=== PATIENT | male | born 1945 | race Caucasian/White ===

== ENCOUNTER 2017-08-13 05:27 | Day surgery (SDC) | payer OTHER, MEDICARE ==
[2017-08-10 12:03] LABS: APPEARANCE,URINE CLEAR; BILIRUBIN,URINE NEGATIVE (NEGATIVE); GLUCOSE, URINE NEGATIVE (NEGATIVE); KETONES,URINE NEGATIVE (NEGATIVE); LEUKOCYTE ESTERASE,URINE NEGATIVE (NEGATIVE); NITRITE,URINE NEGATIVE (NEGATIVE); PROTEIN,URINE NEGATIVE (NEGATIVE); URINE SPECIFIC GRAVITY 1.009; UROBILINOGEN,URINE NEGATIVE mg/dL (<2.0)
[2017-08-10 12:04] LABS: ABSOLUTE BASOPHILS # (AUTO) 0.1 10^3/uL (0.0-0.2); ABSOLUTE EOSINOPHILS # (AUTO) 0.1 10^3/uL (0.0-0.6); ABSOLUTE MONOCYTES (AUTO) 0.8 10^3/uL (0.1-1.4); ABSOLUTE NEUT (AUTO) 7.8 10^3/uL (1.7-8.2); BASOPHILS % (AUTO) 0.6 % (0-2); EOSINOPHILS % (AUTO) 1.5 % (0-6); HEMOGLOBIN 14.9 g/dL (13.5-17.0); HGB HCT DIFFERENCE 2.7; LYMPHOCYTES % (AUTO) 10.4 % (13-45); MEAN CORPUSCULAR HEMOGLOBIN 31.3 pg (27.0-33.4); MEAN CORPUSCULAR HGB CONC 35.5 g/dL (32.0-36.0); MEAN CORPUSCULAR VOLUME 88 fl (80-97); MONOCYTES % (AUTO) 7.7 % (3-13); RED BLOOD COUNT 4.77 10^6/uL (4.35-5.55); RED CELL DISTRIBUTION WIDTH 13.4 % (11.5-14.0); SEGMENTED NEUTROPHILS % (AUTO) 79.8 % (42-78); WHITE BLOOD COUNT 9.8 10^3/uL (4.0-10.5)
[2017-08-10 12:33] LABS: ANION GAP 14 (5-19); BLOOD UREA NITROGEN 24 mg/dL (7-20); CALCIUM 9.2 mg/dL (8.4-10.2); CARBON DIOXIDE 25 mmol/L (22-30); CHLORIDE 103 mmol/L (98-107); CREATININE RESULT 1.03 mg/dL (0.52-1.25); GLUCOSE 89 mg/dL (75-110); POTASSIUM 4.9 mmol/L (3.6-5.0); SODIUM 141.5 mmol/L (137-145)
--- NOTE | 2017-08-10 14:10 | EKG REPORT ---
SEVERITY:- NORMAL ECG - SINUS RHYTHM : Confirmed by: Jaime Carrillo MD 10-Aug-2017 14:09:24
--- NOTE | 2017-08-10 14:40 | RADIOLOGY REPORT (SQ) ---
EXAM DESCRIPTION: CHEST PA/LATERAL COMPLETED DATE/TIME: 08/10/2017 12:17 pm REASON FOR STUDY: PRE-OP M75.122 COMPLETE ROTATR-CUFF TEAR/RUPTR OF LEFT SHOULDER, NO COMPARISON: None. NUMBER OF VIEWS: Two view. TECHNIQUE: Frontal and lateral radiographic views of the chest acquired. LIMITATIONS: None. FINDINGS: LUNGS AND PLEURA: No opacities, masses or pneumothorax. No pleural effusion. MEDIASTINUM AND HILAR STRUCTURES: No masses. No contour abnormalities. HEART AND VASCULAR STRUCTURES: Heart enlarged without failure. Aorta normal for age. BONES: No acute findings. HARDWARE: None in the chest. OTHER: No other significant finding. IMPRESSION: No acute abnormality in the chest. TECHNICAL DOCUMENTATION: JOB ID: [id number] [employer]- All Rights Reserved
[~2017-08-13 05:27] MED LIST: CEFAZOLIN 2 GM/D5W RTU 2 GM/50 ML RTUPB IV PRN; LACTATED RINGERS 1000 ML IV PRN; LIDOCAINE 0.5% INJ-PF (5 MG/ML) 50 ML SDV SUBCUT PRN
[2017-08-13 06:11] LABS: PROTHROMBIN TIME 13.5 SEC (11.4-15.4)
[2017-08-13 06:12] LABS: PARTIAL THROMBOPLASTIN TIME 30.9 SEC (23.5-35.8)
[2017-08-13] MEDS ORDERED: EPINEPHRINE INJ/PF 1 MG/1 ML AMPULE ONE (06:32)
[2017-08-13] MEDS ORDERED: BUPIVACAINE HCL 0.5 % INJ/PF 30 ML SDV ONE (06:32)
[2017-08-13] MEDS ORDERED: FENTANYL CITRATE INJ/PF 250 MCG/5 ML AMPULE ONE (06:50)
[2017-08-13] MEDS ORDERED: HYDROMORPHONE HCL INJ/PF 2 MG/ML AMPULE ONE (06:50)
[2017-08-13] MEDS ORDERED: LIDOCAINE 2% INJ-PF (20 MG/ML) 10 ML AMPUL ONE (06:50)
[2017-08-13] MEDS ORDERED: PROPOFOL INJ 200 MG/20 ML VIAL IV ONE (06:51)
[2017-08-13] MEDS ORDERED: DEXAMETHASONE SOD PHOSPHATE INJ 4 MG/1 ML VIAL ONE (06:51)
[2017-08-13] MEDS ORDERED: MIDAZOLAM 2 MG/2 ML INJ ONE (06:51)
[2017-08-13] MEDS ORDERED: ONDANSETRON HCL INJ/PF 4 MG/2 ML SDV ONE (06:51)
[2017-08-13] MEDS ORDERED: ACETAMINOPHEN 100 ML IV ONE (06:51)
[2017-08-13] MEDS ORDERED: EPHEDRINE SULFATE INJ 50 MG/1 ML AMPULE ONE (08:06)
[2017-08-13] MEDS ORDERED: MEPERIDINE HCL/PF INJ 25 MG/1 ML DISP.SYRIN IV PRN (08:37)
[2017-08-13] MEDS ORDERED: ONDANSETRON HCL INJ/PF 4 MG/2 ML SDV IV PRN (08:37)
[2017-08-13] MEDS ORDERED: DIPHENHYDRAMINE HCL 50 MG/ML VIAL IV PRN (08:37)
[2017-08-13] MEDS ORDERED: PROMETHAZINE HCL INJ 25 MG/1 ML VIAL IV PRN ×2 (08:37)
[2017-08-13] MEDS ORDERED: OXYCODONE-ACETAMINOPHEN 5-325 MG TABLET PO PRN ×4 (08:37→11:15)
[2017-08-13] MEDS ORDERED: FENTANYL CITRATE INJ/PF 100 MCG/2 ML AMPUL IV PRN ×3 (08:37)
[2017-08-13] MEDS ORDERED: MORPHINE SULFATE 10 MG/ML INJ IV PRN (08:37)
[2017-08-13] MEDS ORDERED: IBUPROFEN INJ 800 MG/8 ML VIAL IV ONE (11:11)
[2017-08-13] MEDS: FENTANYL CITRATE INJ/PF 100 MCG/2 ML AMPUL ONE ×2 (11:12→11:21)
--- NOTE | 2017-08-13 11:12 | Operative Report ---
Operative Report DATE OF SURGERY: 08/13/17 PREOPERATIVE DIAGNOSIS: Left shoulder rotator cuff tear and degenerative SLAP tear POSTOPERATIVE DIAGNOSIS: Same OPERATION: Left shoulder arthroscopic rotator cuff repair and subpectoralis biceps tenodesis SURGEON: LAVELLE ANN ANESTHESIA: GA TISSUE REMOVED OR ALTERED: Portion of the long head of the biceps COMPLICATIONS: None ESTIMATED BLOOD LOSS: Less than 20 mL INTRAOPERATIVE FINDINGS: As above PROCEDURE: IMPLANTS: 5.5mm by composite anchors with suture tape and one 4.75mm by composite swivel lock DESCRIPTION OF PROCEDURE: Patient was brought to the operating room placed in supine position. After successfully induced and intubated the patient patient was placed in the beachchair position the head and endotracheal tube was secured appropriately. The left shoulder was prepped and draped in a normal surgical fashion. A timeout was done identifying the left shoulder as the correct site. After inflating the glenohumeral joint with sterile saline solution an 11 blade was used to establish the posterior portal. The arthroscope was introduced and return of fluid was seen showing that we successfully penetrated the glenohumeral joint. With the use of spinal needle we're able to evaristo the anterior portal and using an 11 blade able to establish anterior portal. A cannula was introduced through the anterior portal. At this point diagnostic scope was done. 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 Patient had degenerative tearing of the labrum involving the long head of the biceps with subluxation medially. I proceeded to use arthroscopic scissors to do a tenotomy of the biceps. I use a shaver to debride the labrum cartilage of the humeral head. I used electrical radiofrequency ablator to them and up the tissue on the glenoid rim to free up the rotator cuff superiorly which showed a full-thickness tear with retraction. A lateral portal was established 11 blade. 4.0mm shaver was introduced and was used to prepare the tear and the frontal bone for preparation of anchor placement. Once I was satisfied with the preparation I then redirected my scope into the subacromial space. I did a formal bursectomy. Patient had very inflamed bursa tissue that required significant resection. I was able to expose the margin convergence full-thickness tear of the supraspinous and infraspinatus. I was able to see that I can mobilize infraspinatus and bring it towards the greater tuberosity and the supraspinatus as well. I proceeded to actually do a margin convergence using the scorpion fast pass needle to pass a FiberWire and bring the apex together. A percutaneous incision was then just adjacent to the acromion on the lateral aspect. Through this percutaneous hole the awl was used to prepare the hole for an anchor. [place] was percutaneously sent flushed with the bone just adjacent to the articular margin.Same steps were taken for placement of our second anchor more posteriorly. Sutures were passed through the anterior portal for proper suture management. With the use of the scorpion and I proceeded to pass the sutures through the rotator cuff tendon with proper suture management was able to pass the strands either through percutaneous hole or the anterior portal. Once I was satisfied with placement of all my sutures I then proceeded to do my arthroscopic knots. At this point the strands were used to do our lateral row. Bicomposite show out was used and the lateral aspect of the humerus was then cleaned off with a shaver and electrocautery. Once identified once I was replacement I proceeded to use my awl to do my hole. This this point the sutures were adequately tensioned and subluxed for inserted and secured securing and increasing the footprint of the rotator cuff repair. Remaining strands were cut with the arthroscopic cutter.Final pictures were taking showing my repair. At this point fluid from the shoulder was removed camera and instruments were all removed. Once my rotator cuff was repaired I then did my subpectoralis biceps tenodesis doing a 1 inch incision on the anterior aspect of the arm. Bovie was used to maintain hemostasis. Metzenbaum scissors was used to dissect the fascial tissue over the biceps. This was freed proximally and distally and I was able to follow the bicipital groove and palpate the biceps. I used a 90 clamp to actually capture the biceps and poor to my incision. I was able then to use a fiber loop and secured 2 cm of the muscular tendinous junction and tendon. I used the button and fed the FiberWire through it securing into the titanium button. I used a 4.0 spade tip guidepin to drill hole at the base of the bicipital groove and removed it. I was able to insert and and flipped the button and securing the biceps onto the anterior portion of the biceps. I did half hitch knots to secure further and then cut it with a FiberWire scissors. I proceeded to close my portal sites with 3-0 nylon. I used 0 Vicryl 2-0 Vicryl for the subpectoral incision and 3-0 nylon for the skin. Applied Xeroform , 4 x 4 dressing followed by ABDs pads and Medipore tape was applied. Patient was placed in a sling and returned to supine position where he was successfully extubated and taken to PACU in stable condition.
--- NOTE | 2017-08-13 11:15 | PDOC DISCHARGE SUMMARY ---
Discharge Summary (SDC) - Discharge Final Diagnosis: Status post left shoulder arthroscopic rotator cuff repair and subpectoralis biceps tenodesis Date of Surgery: 08/13/17 Discharge Date: 08/13/17 Condition: Good Treatment or Instructions: Patient is instructed to follow up in 10-14 days. Patient instructed to remove dressing in 4 days then can shower and apply Band- Aids as needed. Patient to wear sling for comfort but okay to remove for shower and pendulum exercises. Pendulum exercises are instructed to be done 3 times a day ideally with breakfast, lunch, dinners and showers. Patient instructed to call if there is any signs of redness or drainage fevers or chills. Prescriptions: Oxycodone HCl/Acetaminophen [Percocet 5-325 mg Tablet] 1 - 2 tab PO ASDIR PRN # 60 tablet PRN Reason: Referrals: LEATHA RIVERA MD [Primary Care Provider] - Discharge Diet: As Tolerated Respiratory Treatments at Home: Deep Breathing/Coughing Discharge Activity: No Driving, No Lifting/Push/Pulling, Walk Frequently Home Care Assistance: None Needed Report the Following to Your Physician Immediately: Shortness of Breath, Vomiting, Increase in Pain, Fever over 101 Degrees, Unusual Bleeding, Redness, Swelling, Warmth, Increased Soreness, Drainage-Yellow, Drainage-Gonzalez, Drainage- Green, Drainage-Foul Smelling
[2017-08-13] MEDS ORDERED: LORAZEPAM INJ 2 MG/1 ML VIAL ONE (11:48)
[2017-08-13] MEDS ORDERED: MORPHINE SULFATE 10 MG/ML INJ ONE (11:49)
[2017-08-13] MEDS ORDERED: SUCCINYLCHOLINE CHLORIDE INJ 200 MG/10 ML VIAL ONE (13:30)
[2017-08-13] MEDS ORDERED: VECURONIUM BROMIDE INJ 10 MG VIAL IV ONE (13:30)
[2017-08-13 14:34] VITALS: BP 161/85
== END 2017-08-13 14:30 | disposition home or self-care (01) ==
LOC: OROUT 05:27
PROVIDERS: ATTEND Orthopaedic Surgery
PROC: 0LM24ZZ Reattachment of Left Shoulder Tendon, Percutaneous Endoscopic Approach (ICD-10-PCS; 2017-08-13)
PROC: 0LM20ZZ Reattachment of Left Shoulder Tendon, Open Approach (ICD-10-PCS; principal; 2017-08-13 07:30)
DX: M75.122 Complete rotator cuff tear or rupture of left shoulder, not specified as traumatic (principal); E78.5 Hyperlipidemia, unspecified; I10 Essential (primary) hypertension; D64.9 Anemia, unspecified; R01.1 Cardiac murmur, unspecified; Z79.899 Other long term (current) drug therapy; Z79.1 Long term (current) use of non-steroidal anti-inflammatories (NSAID); Z79.891 Long term (current) use of opiate analgesic
CPT/HCPCS: 24340; 93005; 36415 ×2; 82962; 84132; 85025; 85610; 85730; 80048; 81001; 71020; 93010; 29827; C1713 ×2; J2250; J1100; J3490 ×3; J0171; J3010 ×2; J2270; J1170; J2060; J0330; J2405; J2704; J0690; J0131; J1741; 1630

== ENCOUNTER → 2017-12-03 | Outpatient (CLI) | payer OTHER, MEDICARE ==
--- NOTE | 2017-12-04 09:40 | RADIOLOGY REPORT (SQ) ---
EXAM DESCRIPTION: MRI RT UPPER JOINT WITHOUT COMPLETED DATE/TIME: 12/03/2017 12:00 pm REASON FOR STUDY: COMPLETE ROTATOR CUFF TEAR OR RUPTURE OF RIGHT SHOULDER, NOT SPECIFIED T M75.12 1 COMPLETE ROTATR-CUFF TEAR/RUPTR OF R SHOULDER, NOT T COMPARISON: None. TECHNIQUE: Right shoulder images acquired and stored on PACS. Multiplanar imaging to include fat sen sitive sequences such as T1, water sensitive sequences such as FST2/STIR, cartilage sensitive sequenc es such as FSPD/gradient-echo sequences. LIMITATIONS: Motion artifact. FINDINGS: BONE MARROW AND CORTEX: No worrisome bone lesions or marrow replacement. No occult fractur es. JOINT OR BURSAL EFFUSION: Glenohumeral joint effusion. Fluid in the subacromial subdeltoid bursa. GLENO-HUMERAL ARTICULATION: Superior migration of the humeral head. ACROMION AND AC JOINT: Type 2. Moderate AC joint arthropathy. ROTATOR CUFF AND INTERVAL: Atrophy of the supraspinatus and infraspinatus. Full-thickness tears of t he supraspinatus and infraspinatus with retraction to the level of the glenoid. Partial tear of the subscapularis with medial subluxation of the biceps. No rotator interval tear. No rotator interval thickening to suggest adhesive capsulitis. LABRUM AND BICEPS LABRAL COMPLEX: Degenerative SLAP tear. REMAINDER OF LABRUM AND IGHL : Slap tear extends into the posterior labrum. IGHL intact as visualize d. PERIARTICULAR AND ADJACENT SOFT TISSUES: No masses or abnormal nodes. OTHER: No other significant finding. IMPRESSION: 1. Technical limitations due to patient motion. 2. Full-thickness tears of the supraspinatus and infraspinatus with retraction and muscle atrophy. P artial thickness tear of the subscapularis with medial subluxation of the biceps. 3. Degenerative slap tear extending into the posterior inferior labrum. 4. AC and glenohumeral joint arthropathy. TECHNICAL DOCUMENTATION: JOB ID: [id number] [employer]- All Rights Reserved Reading location - IP/workstation name: [email or web address]
== END ==
LOC: RAD 10:48
PROVIDERS: ATTEND Orthopaedic Surgery
DX: M75.121 Complete rotator cuff tear or rupture of right shoulder, not specified as traumatic (principal)

== ENCOUNTER 2018-01-07 10:26 | Day surgery (SDC) | payer OTHER, MEDICARE ==
--- NOTE | 2017-12-24 09:26 | EKG REPORT ---
SEVERITY:- ABNORMAL ECG - SINUS RHYTHM SINUS PAUSE/ARREST WITH ATRIAL ESCAPE PROLONGED QT INTERVAL : Confirmed by: Elliot Sapp 24-Dec-2017 09:25:42
[2017-12-24 09:47] LABS: ABSOLUTE EOSINOPHILS # (AUTO) 0.3 10^3/uL (0.0-0.6); ABSOLUTE LYMPHOCYTES (AUTO) 1.1 10^3/uL (0.5-4.7); ABSOLUTE MONOCYTES (AUTO) 0.6 10^3/uL (0.1-1.4); ABSOLUTE NEUT (AUTO) 3.6 10^3/uL (1.7-8.2); BASOPHILS % (AUTO) 0.9 % (0-2); EOSINOPHILS % (AUTO) 4.7 % (0-6); HEMATOCRIT 43.3 % (37.9-51.0); HEMOGLOBIN 14.8 g/dL (13.5-17.0); LYMPHOCYTES % (AUTO) 19.9 % (13-45); MEAN CORPUSCULAR HEMOGLOBIN 30.3 pg (27.0-33.4); MEAN CORPUSCULAR VOLUME 89 fl (80-97); MONOCYTES % (AUTO) 11.2 % (3-13); PLATELET COUNT 145 10^3/uL (150-450); RED BLOOD COUNT 4.87 10^6/uL (4.35-5.55); RED CELL DISTRIBUTION WIDTH 13.8 % (11.5-14.0); SEGMENTED NEUTROPHILS % (AUTO) 63.3 % (42-78); TOTAL CELLS COUNTED % (AUTO) 100 %; WHITE BLOOD COUNT 5.7 10^3/uL (4.0-10.5)
[2017-12-24 09:54] LABS: APPEARANCE,URINE CLEAR; BILIRUBIN,URINE NEGATIVE (NEGATIVE); COLOR,URINE YELLOW; GLUCOSE, URINE NEGATIVE (NEGATIVE); KETONES,URINE NEGATIVE (NEGATIVE); LEUKOCYTE ESTERASE,URINE NEGATIVE (NEGATIVE); NITRITE,URINE NEGATIVE (NEGATIVE); PROTEIN,URINE NEGATIVE (NEGATIVE); UROBILINOGEN,URINE NEGATIVE mg/dL (<2.0)
[2017-12-24 10:03] LABS: ANION GAP 11 (5-19); BLOOD UREA NITROGEN 22 mg/dL (7-20); CALCIUM 9.5 mg/dL (8.4-10.2); CARBON DIOXIDE 25 mmol/L (22-30); CHLORIDE 103 mmol/L (98-107); GLUCOSE 118 mg/dL (75-110); POTASSIUM 5.1 mmol/L (3.6-5.0); SODIUM 138.5 mmol/L (137-145)
--- NOTE | 2017-12-24 11:55 | RADIOLOGY REPORT (SQ) ---
EXAM DESCRIPTION: CHEST PA/LATERAL COMPLETED DATE/TIME: 12/24/2017 10:44 am REASON FOR STUDY: PRE OP COMPARISON: Two-view chest 08/10/2017 EXAM PARAMETERS: NUMBER OF VIEWS: two views TECHNIQUE: Digital Frontal and Lateral radiographic views of the chest acquired. RADIATION DOSE: NA LIMITATIONS: none FINDINGS: LUNGS AND PLEURA: No opacities, masses or pneumothorax. No pleural effusion. MEDIASTINUM AND HILAR STRUCTURES: No masses or contour abnormalities. HEART AND VASCULAR STRUCTURES: Heart normal size. No evidence for failure. BONES: No acute findings. HARDWARE: None in the chest. OTHER: No other significant finding. IMPRESSION: NO SIGNIFICANT RADIOGRAPHIC FINDING IN THE CHEST. TECHNICAL DOCUMENTATION: JOB ID: [id number] [employer]- All Rights Reserved Reading location - IP/workstation name: [email or web address]
[~2018-01-07 10:26] MED LIST changes: +BUPIVACAINE HCL 0.5 % INJ/PF 30 ML SDV ONE; -CEFAZOLIN 2 GM/D5W RTU 2 GM/50 ML RTUPB IV PRN; +CEFAZOLIN SODIUM 2 GM in NORMAL SALINE 100 ML IV PRN; +EPINEPHRINE INJ/PF 1 MG/1 ML AMPULE ONE
[2018-01-07] MEDS ORDERED: FENTANYL CITRATE INJ/PF 100 MCG/2 ML AMPUL ONE ×3 (10:35→10:36)
[2018-01-07] MEDS ORDERED: DEXAMETHASONE SOD PHOSPHATE INJ 4 MG/1 ML VIAL ONE (10:36)
[2018-01-07] MEDS ORDERED: ONDANSETRON HCL INJ/PF 4 MG/2 ML SDV ONE (10:36)
[2018-01-07] MEDS ORDERED: MIDAZOLAM 2 MG/2 ML INJ ONE (10:36)
[2018-01-07] MEDS ORDERED: EPHEDRINE SULFATE INJ 50 MG/1 ML AMPULE ONE (10:36)
[2018-01-07] MEDS ORDERED: PROPOFOL INJ 200 MG/20 ML VIAL IV ONE (10:36)
[2018-01-07] MEDS ORDERED: SUCCINYLCHOLINE CHLORIDE INJ 200 MG/10 ML VIAL ONE (12:49)
[2018-01-07] MEDS ORDERED: ACETAMINOPHEN 100 ML IV ONE (12:56)
[2018-01-07] MEDS ORDERED: PROMETHAZINE HCL INJ 25 MG/1 ML VIAL IV PRN ×3 (13:28→17:24)
[2018-01-07] MEDS ORDERED: MEPERIDINE HCL/PF INJ 25 MG/1 ML DISP.SYRIN IV PRN ×2 (13:28→17:24)
[2018-01-07] MEDS ORDERED: ONDANSETRON HCL INJ/PF 4 MG/2 ML SDV IV PRN (13:28)
[2018-01-07] MEDS ORDERED: DIPHENHYDRAMINE HCL 50 MG/ML VIAL IV PRN ×2 (13:28→17:24)
[2018-01-07] MEDS ORDERED: FENTANYL CITRATE INJ/PF 100 MCG/2 ML AMPUL IV PRN ×6 (13:28→17:24)
--- NOTE | 2018-01-07 16:45 | Operative Report ---
Operative Report DATE OF SURGERY: 01/07/18 PREOPERATIVE DIAGNOSIS: Right full-thickness rotator cuff tear. subluxing long head of the biceps and partial tearing of long head of biceps. Synovitis. Degenerative tearing of the labrum and mild glenohumeral joint arthritis POSTOPERATIVE DIAGNOSIS: Same OPERATION: Right shoulder arthroscopy with extensive debridement, rotator cuff repair 2 anchors, subpectoralis biceps tenodesis SURGEON: LAVELLE ANN ANESTHESIA: GA TISSUE REMOVED OR ALTERED: Long head of the biceps COMPLICATIONS: None ESTIMATED BLOOD LOSS: 20 mL INTRAOPERATIVE FINDINGS: As above PROCEDURE: IMPLANTS: [Arthrex ] DESCRIPTION OF PROCEDURE: Patient was brought to the operating room placed in supine position. After successfully induced and intubated the patient patient was placed in the beachchair position the head and endotracheal tube was secured appropriately. The right shoulder was prepped and draped in a normal surgical fashion. A timeout was done identifying the right shoulder as the correct site. After inflating the glenohumeral joint with sterile saline solution an 11 blade was used to establish the posterior portal. The arthroscope was introduced and return of fluid was seen showing that we successfully penetrated the glenohumeral joint. With the use of spinal needle we're able to evaristo the anterior portal and using an 11 blade able to establish anterior portal. A cannula was introduced through the anterior portal. At this point diagnostic scope was done. At first glance patient had a degenerative type II SLAP tear with subluxation medially and was probed showing the detachment. Also when I turned my attention to the rotator cuff was evidence of showing the full-thickness rotator cuff tear with retraction to the glenohumeral joint. The articulation was intact with some grade 3 and grade 4 changes diffusely of the humeral head and glenoid. He also had some degenerative tearing of the labrum anteriorly and inferiorly. tenotomy of the long head of biceps was done using arthroscopic scissors. No loose bodies. A lateral portal was established 11 blade. [place] cannula was introduced to secure the lateral portal. 4.0mm shaver was introduced and was used to debride edges of the tear as well as bur the bone for preparation of anchor placement. Once I was satisfied with the preparation I then redirected my scope into the subacromial space. I noted that the cuff was mobile and the infraspinatus was able to return to release the articular margin. The supraspinatus tendon just barely made it to the articular margin knowing that I could do a 2 anchor repair with a lateral row. A percutaneous incision was then just adjacent to the acromion on the lateral aspect. Through this percutaneous hole the awl was used to prepare the hole for an anchor. [place] was percutaneously sent flushed with the bone just adjacent to the articular margin.Same steps were taken for placement of our second anchor more posteriorly. Sutures were passed through the anterior portal for proper suture management. With the use of the scorpion and I proceeded to pass the sutures through the rotator cuff tendon with proper suture management was able to pass the strands either through percutaneous hole or the anterior portal. Unfortunately the posterior anchor pulled out while he was time I am not so I would had to remove the bio composite anchor and sutures. I used a 5.5 mm titanium screw then to place it more anterior to the old hold and show that had good fixation and hold just adjacent to the articular margin. Once I was satisfied with placement of all my sutures I then proceeded to redo my arthroscopic knots. At this point the strands were used to do our lateral row. Bicomposite swivel lock were used for the lateral row fixation. Lateral aspect of the humerus was then cleaned off with a shaver and electrocautery. Once identified placementof the swivel lock, I proceeded to use my awl to do my hole. This this point the sutures were adequately tensioned and secured. Swivel lock was inserted and screwed in, securing and increasing the footprint of the rotator cuff repair. Remaining strands were cut with the arthroscopic cutter. Final pictures were taking showing my repair. At this point fluid from the shoulder was removed camera and instruments were all removed. I turned my attention to the subpectoralis biceps tenodesis portion of the case. I used a 15 blade and did a inch and a half incision on the anterior aspect of the arm adjacent to the axillary fold. I used electrocautery to obtain hemostasis of the subcutaneous tissue bleed. I used Metzenbaum scissors and 2 pierced and split the fascial tissue covering the biceps and deltoid. I used then combination of my finger and 90 clamp to palpate the long head of biceps and bicipital groove and capturing hook the tendon that was tenotomized. This was pulled through my incision successfully. I used a fiber loop to then secure my muscular tendinous portion which was approximately 2 cm. The remaining biceps was cut and discarded. The loop was, and the 2 strands were then fed through the tenodesis button. These were secured and then I proceeded to use Homans to expose the side of the humeral shaft and was able to used a 4 mm spade tip guidepin to drill the anterior cortex. This was removed and then the loaded button was then inserted and then removing the disposable portion was able to flip the button and securing the biceps onto the anterior cortex of the humerus. Half hitch knots were done to further secure the biceps. Remaining strand was cut with a fiber wire scissors. I used 0 Vicryl to approximate the subcutaneous tissue. I used 3-0 nylon to do closure of my incision. I proceeded to close my portal sites with 3 -0 nylon. Xeroform 4 x 4 dressing followed by ABDs pads and Medipore tape was applied. Patient was placed in a sling and returned to supine position where he was successfully extubated and taken to PACU in stable condition.
[2018-01-07] MEDS: FENTANYL CITRATE INJ/PF 100 MCG/2 ML AMPUL ONE ×2 (16:55→17:00)
--- NOTE | 2018-01-07 16:58 | Discharge Summary ---
Discharge Summary (SDC) - Discharge Final Diagnosis: Right shoulder rotator cuff repair and subpectoralis biceps tenodesis Date of Surgery: 01/07/18 Discharge Date: 01/07/18 Condition: Good Treatment or Instructions: Patient is instructed to follow up in 10-14 days. Patient instructed to remove dressing in 4 days then can shower and apply Band- Aids as needed. Patient to wear sling for comfort but okay to remove for shower and pendulum exercises. Pendulum exercises are instructed to be done 3 times a day ideally with breakfast, lunch, dinners and showers. Patient instructed to call if there is any signs of redness or drainage fevers or chills. Prescriptions: Oxycodone HCl/Acetaminophen [Percocet 5-325 mg Tablet] 1 - 2 tab PO ASDIR PRN # 60 tablet PRN Reason: Referrals: LEATHA RIVERA MD [Primary Care Provider] - Discharge Diet: As Tolerated Respiratory Treatments at Home: Deep Breathing/Coughing Discharge Activity: No Driving, No Lifting/Push/Pulling, Walk Frequently Report the Following to Your Physician Immediately: Shortness of Breath, Vomiting, Increase in Pain, Fever over 101 Degrees, Unusual Bleeding, Redness, Swelling, Warmth, Drainage-Yellow, Drainage-Gonzalez, Drainage-Green, Drainage-Foul Smelling
[2018-01-07] MEDS ORDERED: OXYCODONE-ACETAMINOPHEN 5-325 MG TABLET PO PRN ×4 (17:04→17:24)
[2018-01-07] MEDS: MORPHINE SULFATE 10 MG/ML INJ ONE ×5 (17:05→17:50)
[2018-01-07 19:45] VITALS: BP 157/76
== END 2018-01-07 19:42 | disposition home or self-care (01) ==
LOC: OROUT 10:26
PROVIDERS: ATTEND Orthopaedic Surgery
PROC: 0LM14ZZ Reattachment of Right Shoulder Tendon, Percutaneous Endoscopic Approach (ICD-10-PCS; 2018-01-07)
PROC: 0RBJ4ZZ Excision of Right Shoulder Joint, Percutaneous Endoscopic Approach (ICD-10-PCS; 2018-01-07)
PROC: 0LM30ZZ Reattachment of Right Upper Arm Tendon, Open Approach (ICD-10-PCS; principal; 2018-01-07 12:15)
DX: M75.121 Complete rotator cuff tear or rupture of right shoulder, not specified as traumatic (principal); S43.39 Subluxation and dislocation of other parts of shoulder girdle; W19.XXXD Unspecified fall, subsequent encounter; M65.9 Synovitis and tenosynovitis, unspecified; M24.811 Other specific joint derangements of right shoulder, not elsewhere classified; M19.211 Secondary osteoarthritis, right shoulder; E78.5 Hyperlipidemia, unspecified; I10 Essential (primary) hypertension; Z88.6 Allergy status to analgesic agent; Z79.899 Other long term (current) drug therapy; Z79.01 Long term (current) use of anticoagulants; Z79.891 Long term (current) use of opiate analgesic; I49.9 Cardiac arrhythmia, unspecified; Z85.820 Personal history of malignant melanoma of skin
CPT/HCPCS: 24340; 93005; 36415 ×2; 84132; 85025; 80048; 81001; 71046; 93010; 29827; 29823; C1713 ×2; J2250; J3490 ×2; J0690; J1100; J0171; J3010; J2270; J0330; J2405; J2704; J0131; 1630